=== PATIENT | female | born 1960 | race African-American/Black ===

== ENCOUNTER → 2016-09-09 | Outpatient (CLI) | payer OTHER | LOC: WI 14:30 | PROVIDERS: ATTEND Physician Assistant | DX: Z12.31 Encounter for screening mammogram for malignant neoplasm of breast (principal) | CPT/HCPCS: 77067; G0202 ==

== ENCOUNTER → 2017-02-13 | Outpatient (CLI) | payer OTHER ==
--- NOTE | 2017-02-13 14:31 | RADIOLOGY REPORT (SQ) ---
EXAM DESCRIPTION: CT HEAD WITHOUT COMPLETED DATE/TIME: 02/13/2017 1:32 pm REASON FOR STUDY: HEADACHE (R51) R51 HEADACHE COMPARISON: None. TECHNIQUE: Axial images acquired through the brain without intravenous contrast. Images reviewed wi th bone, brain and subdural windows. Images stored on PACS. All CT scanners at this facility use dose modulation, iterative reconstruction, and/or weight based d osing when appropriate to reduce radiation dose to as low as reasonably achievable (ALARA). [facility]: Dose Right [facility]: CareDose [facility]: Dose Right [facility]: Teradose 4D [facility]: HipWay RADIATION DOSE: Up-to-date CT equipment and radiation dose reduction techniques were employed. CTDIv ol: 49.0 mGy. DLP: 881 mGy-cm. mGy. LIMITATIONS: None. FINDINGS: VENTRICLES: Normal size and contour. CEREBRUM: No masses. No hemorrhage. No midline shift. No evidence for acute infarction. Normal gra y/white matter differentiation. No areas of low density in the white matter. CEREBELLUM: No masses. No hemorrhage. No alteration of density. No evidence for acute infarction. EXTRAAXIAL SPACES: No fluid collections. No masses. ORBITS AND GLOBE: No intra- or extraconal masses. Normal contour of globe without masses. CALVARIUM: No fracture. PARANASAL SINUSES: No fluid or mucosal thickening. SOFT TISSUES: No mass or hematoma. OTHER: No other significant finding. IMPRESSION: NORMAL BRAIN CT WITHOUT CONTRAST. COMMENT: Quality ID # [id number]: Final reports with documentation of one or more dose reduction techniques (e.g., Automated exposure control, adjustment of the mA and/or kV according to patient size, use of iterative reconstruction technique) TECHNICAL DOCUMENTATION: JOB ID: [id number] [employer]- All Rights Reserved
== END ==
LOC: RAD 13:15
PROVIDERS: ATTEND Physician Assistant
DX: R51 Headache (principal)
CPT/HCPCS: 70450

== ENCOUNTER → 2018-01-11 | Outpatient (CLI) | payer OTHER ==
--- NOTE | 2018-01-11 14:42 | RADIOLOGY REPORT (SQ) ---
EXAM DESCRIPTION: CT FACIAL AREA WITHOUT COMPLETED DATE/TIME: 01/11/2018 9:53 am REASON FOR STUDY: LOCALIZED SWELLING, MASS AND LUMP, HEAD Z12.31 ENCNTR SCREEN MAMMOGRAM FOR MALIGN ANT NEOPLASM OF ROB R22.0 LOCALIZED SWELLING, MASS AND LUMP, HEAD COMPARISON: None. TECHNIQUE: Noncontrasted images through the facial bones and orbits windowed for bone and soft tissu e. Additional coronal and sagittal reconstructed images reviewed. All images stored on PACS. All CT scanners at this facility use dose modulation, iterative reconstruction, and/or weight based d osing when appropriate to reduce radiation dose to as low as reasonably achievable (ALARA). [facility]: Dose Right [facility]: CareDose [facility]: Dose Right [facility]: Teradose 4D [facility]: Forever RADIATION DOSE: 45.6 mGy. LIMITATIONS: None. FINDINGS: Patient presents with a palpable abnormality in the left cheek soft tissue, area of palpab le abnormality was marked on the patient's skin with a BB. Immediately deep to the skin marker, a 9 mm craniocaudad by 9 mm AP by 7 mm transverse well-circumscr ibed soft tissue density nodule is present. This could represent a small intra parotid lymph node. A small primary parotid tumor could not entirely be excluded. Remainder of the left parotid gland and Franky's duct are radiographically unremarkable. Right paro tid gland unremarkable. FACIAL BONES: No fracture or bone lesion. ORBITS: Intact. No fracture. Symmetric intact globes and retroorbital soft tissues. PARANASAL SINUSES: Clear. No significant mucosal thickening, mass or fluid. No nasal polyps. Maxill uday sinus outlets are patent. SOFT TISSUES: No abscess. No soft tissue gas. No radiopaque foreign body INFERIOR BRAIN: Limited view. No acute findings. OTHER: No other significant finding. IMPRESSION: Palpable abnormality over the left cheek correlates with a 9 x 9 x 7 mm solid nodule minnie ng the anterior edge, superficial lobe parotid gland. This could represent a small intra parotid lym ph node. A primary parotid tumor could not be excluded TECHNICAL DOCUMENTATION: JOB ID: [id number] Quality ID # [id number]: Final reports with documentation of one or more dose reduction techniques (e.g., Au tomated exposure control, adjustment of the mA and/or kV according to patient size, use of iterative reconstruction technique) 2010 [employer]- All Rights Reserved Reading location - IP/workstation name: [email or web address]
--- NOTE | 2018-01-12 11:40 | WOMENS IMAGING REPORT ---
EXAM DESCRIPTION: BILAT SCREENING MAMMO W/CAD COMPLETED DATE/TIME: 01/11/2018 9:36 am REASON FOR STUDY: BILATERAL SCREENING MAMMO/Z12.31 Z12.31 ENCNTR SCREEN MAMMOGRAM FOR MALIGNANT LEILANI PLASM OF ROB R22.0 LOCALIZED SWELLING, MASS AND LUMP, HEAD COMPARISON: 09/09/2016 and 06/16/2015. TECHNIQUE: Standard craniocaudal and mediolateral oblique views of each breast recorded using digita l acquisition. LIMITATIONS: None. FINDINGS: No masses, calcifications or architectural distortion. No areas of suspicion. Read with the assistance of CAD. .[facility] - R2 [employer] Version 1.3 .[facility] - R2 Cen[employer] Version 1.3 .[facility] - R2 Cenova Version 2.4 .[facility] [place] - R2 Cenova Version 2.4 .[facility] - R2 [employer]ist Version 9.2 IMPRESSION: NORMAL MAMMOGRAM. BIRADS 1. BREAST DENSITY: b. There are scattered areas of fibroglandular density. BIRAD: 1 NEGATIVE RECOMMENDATION: ROUTINE SCREENING COMMENT: The patient has been notified of the results by letter per [place] requirements. Additional no tification policies are in place for contacting patient with suspicious or incomplete findings. Quality ID #[id number]: The [employer] recommends an annual screening mammogram for women aged 40 years or over. This facility utilizes a reminder system to ensure that all patients receive reminder letters, and/or direct phone calls for appointments. This includes reminders for routine scr eening mammograms, diagnostic mammograms, or other Breast Imaging Interventions when appropriate. Th is patient will be placed in the appropriate reminder system. The [employer] (ACR) has developed recommendations for screening MRI of the breast s in certain patient populations, to be used in conjunction with mammography. Breast MRI surveillanc e may be appropriate for women with more than 20% lifetime risk of developing breast cancer as deter mined by genetic testing, significant family history of the disease, or history of mantle radiation f or Hodgkins Disease. ACR Practice Guidelines 2008. TECHNICAL DOCUMENTATION: FINDING NUMBER: (1) ASSESSMENT: (1) JOB ID: [id number] [employer]- All Rights Reserved Reading location - IP/workstation name: [email or web address] [id number]
== END ==
LOC: RAD 09:11
PROVIDERS: ATTEND Physician Assistant
DX: Z12.31 Encounter for screening mammogram for malignant neoplasm of breast (principal); R22.0 Localized swelling, mass and lump, head
CPT/HCPCS: 70486; 77067

== ENCOUNTER → 2019-04-02 | Outpatient (CLI) | payer OTHER ==
--- NOTE | 2019-04-02 17:33 | WOMENS IMAGING REPORT ---
EXAM DESCRIPTION: BILAT SCREENING MAMMO W/CAD COMPLETED DATE/TIME: 04/02/2019 3:15 pm REASON FOR STUDY: ROUTINE BILATERAL SCREENING;Z12.31 Z12.31 ENCNTR SCREEN MAMMOGRAM FOR MALIGNANT N EOPLASM OF ROB COMPARISON: 2015 to 2017 EXAM PARAMETERS: Standard craniocaudal and mediolateral oblique views of each breast recorded using digital acquisition. Read with the assistance of CAD. .[facility] - [employer]per Version 9.2 LIMITATIONS: None. FINDINGS: No suspicious masses, suspicious calcifications or architectural distortion. No areas of c oncern. IMPRESSION: Negative MAMMOGRAM. BIRADS 1 BREAST DENSITY: b. There are scattered areas of fibroglandular density. BIRAD: ASSESSMENT: 1 NEGATIVE RECOMMENDATION: ROUTINE SCREENING COMMENT: The patient has been notified of the results by letter per MQSA requirements. Additional no tification policies are in place for contacting patient with suspicious or incomplete findings. Quality ID #[id number]: The [employer] recommends an annual screening mammogram for women aged 40 years or over. This facility utilizes a reminder system to ensure that all patients receive reminder letters, and/or direct phone calls for appointments. This includes reminders for routine scr eening mammograms, diagnostic mammograms, or other Breast Imaging Interventions when appropriate. Th is patient will be placed in the appropriate reminder system. TECHNICAL DOCUMENTATION: FINDING NUMBER: (1) ASSESSMENT: (1) JOB ID: [id number] [employer])- All Rights Reserved Reading location - IP/workstation name: [email or web address]
== END ==
LOC: WI 14:55
PROVIDERS: ATTEND Physician Assistant
DX: Z12.31 Encounter for screening mammogram for malignant neoplasm of breast (principal)
CPT/HCPCS: 77067